=== PATIENT | female | born 1940 | race Caucasian/White ===

== ENCOUNTER → 2018-09-25 | Outpatient (CLI) | payer OTHER ==
[~2018-09-25] VITALS: Ht 152.4 cm; Wt 69.4 kg
[~2018-09-25] MED LIST: B12INJ IM; BENADRYL25 MG PO; BENICAR20 MG PO; CALCIUM 600 +1 EAC1 PO; CLONAZEPAM 1 MG1 M1 PO; CO Q-10100 MG PO; ESTRADIOL 1 MG T1 M1 PO; FISH OIL 1,001000 M2 PO; PROTONIX40 M1 PO; REFRESH CELLUVI1 APP OPHTHALMIC; SIMILASAN OPHTHALMIC; TYLENOL EXTRA500 MG PO; VITAMIN B-12500 MCG PO; VITAMIN D3 PO; VITAMINC500 PO; WELCHOL 625 MG625 M1 PO; WELCHOL 625 MG625 MG PO; ZETIA10 MG PO; ZYRTEC10 M2 PO
[2018-09-25 08:55] VITALS: BP 139/67
--- NOTE | 2018-09-25 09:48 | NUR ---
Pain Clinic Assessment: 1. History of Osteoarthritis: * SHOULDERS AND BACK PER PT History of Rheumatoid Arthritis: 2. Height: 5 ft. 0 in. 152.4 cm. Weight: 153.0 lb. oz. 69.400 kg. Patient's BMI: 29.9 3. Vital Signs: BP: 139/67 Pulse: 88 Resp: 16 Temp: 02 Sat: 96 ECG Mon: 4. Pain Intensity: 1-2 NOW PER PT 5. Fall Risk: Dizziness: Y Needs help standing or walking: N Fallen in the last 3 months: N Fall risk comments: 6. Patient on Blood Thinner: None 7. History of Hypertension: N 8. Opioid Therapy greater than 6 weeks: N Opiate Contract Signed: 9. Risk Assessment Tool Provided: 10. Functional Assessment Tool: 11. Recreational Drug Use: Never Drug Type: Tobacco Use: Unknown if Ever Smoked Tobacco Type: Amount or Packs/day: How Many Years: Alcohol Use: No Frequency: Quant:
--- NOTE | 2018-09-28 16:24 | HPC ---
[facility] [address] [place] [address] PAIN MANAGEMENT CONSULTATION Name: LEONARD GALARZA Room #: REG [facility].#: [id number] Admission: 09/25/18 ������������������ Attend Phys: Yadiel Lam MD Discharge: ������������������ Date of : 42 Report #: [id number] THIS REPORT FOR: //name// CC: Kory WILKINS DATE OF SERVICE: 09/25/2018 CHIEF COMPLAINT: Chronic pain. I am seeing the patient today for discussion of multiple pain generators and chronic pain management. I have recently seen her in the clinic. She complains of numerous pains beginning with a longstanding diagnosis of fibromyalgia and now complaining of constant pain in the thoracic region radiating around the right chest wall in a T6 distribution below the breast, not crossing midline. This pain is worsened when she is leaning back in a chair, putting pressure on the thoracic spine or when the area is pressed. She also has pain with forward flexion and leaning forward to perform day-to-day activities. Descriptors vary from burning, shooting, stabbing and sharp to tenderness. Once the pressure aggravates the pain it takes some time for it to ease. She scores it as a 10/10 when this occurs. A second pain generator is new within the last 2 months. She has complained of pain in her low back radiating into the buttocks equally. It does not go further. It does not go into the legs. This often occurs with prolonged sitting and sleeve machine tender such as lifting. If she can lay down and rests often times the pain will improve. Between the multiple aches and pains of fibromyalgia, the low back pain and the constant pain in the upper back, she has become more and more sedentary. This seems to have increased her pain. During the cold winter months, she has been reluctant to walk or get outside. MEDICATIONS: Cholesterol, Benicar, Zetia, clonazepam, pantoprazole, estradiol, CoQ10, vitamin B12, vitamin C, fish oil, D3, calcium, occasional Zyrtec, Benadryl and she takes Tylenol 500 mg once or twice as needed. ALLERGIES AND SENSITIVITIES: THIS LISTS ABOUT 25 MEDICATIONS AND PLEASE REFER TO THE ELECTRONIC MEDICAL RECORD. ALLERGIES ARE WELL NOTED THROUGHOUT THE RECORD. SHE DOES HAVE SENSITIVITIES TO OPIOIDS AND OTHER PAIN MEDICATIONS INCLUDING ANTI-INFLAMMATORY DRUGS, TOLERATES THEM POORLY. PAST MEDICAL HISTORY: Remarkable for a 1985 "tumor" under the collarbone and a hysterectomy of the same year. She has had multiple eye surgeries. She has had dental implants in [address] [address] PAIN MANAGEMENT CONSULTATION Name: LEONARD GALARZA Room #: REG [facility]#: [id number] Admission: 09/25/18 ������������������ Attend Phys: Yadiel Lam MD Discharge: ������������������ Date of : 42 Report #: [id number] SOCIAL HISTORY: She is . Her is with her today and is supportive. 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 She denies use of tobacco and alcohol. REVIEW OF SYSTEMS: CONSTITUTIONAL: Positive for fatigue, weakness and headaches. EARS, NOSE AND THROAT: Positive for ringing and she complains of chronic sinus problems and allergies to seasonal allergies. CARDIOVASCULAR AND RESPIRATORY: Positive for shortness of breath and dyspnea on exertion. GASTROINTESTINAL: She has no gastrointestinal symptoms. GENITOURINARY: Positive for nocturia and change in force or stream when urinating. MUSCULOSKELETAL: Positive for the diffuse complaints described above. PSYCHIATRIC: She denies any psychiatric issues, depression or anxiety. MUSCULOSKELETAL: Also positive for osteoarthritis. She complains mostly of bilateral knee pain, shoulder pain on the left and hands. PHYSICAL EXAMINATION GENERAL: This is a pleasant female. VITAL SIGNS: Blood pressure 139/67, heart rate 88, respirations 16, O2 sat 96. She scores her pain intensity as 1 to 2 during her visit. She is 5 feet tall, 153 pounds, BMI 29.9. She can move easily from sitting to standing position. She walks without antalgic features. HEAD: Normal. NECK: Supple. No masses palpable. CHEST: Clear to auscultation without wheezing. CARDIAC: Rhythm is regular, without murmur. ABDOMEN: Soft. MUSCULOSKELETAL: Demonstrates multiple tenderness throughout multiple muscle groups consistent with fibromyalgia. Examination of the thoracic spine reveals tenderness along the paravertebral muscles in the midthoracic spine consistent with her complaint of radiating pain around the right side. Palpation of this area even lightly causes hyperalgesia with increased pain that persisted throughout the rest of the exam. Examination of the low back reveals pain across the lumbosacral segment. There is pain with forward flexion, extension, rotational movements. Straight leg raising is negative for radicular symptoms. There is no numbness or weakness noted in the lower extremities. X-RAYS: Radiographs of the thoracic spine reviewed, which shows lumbar thoracic scoliosis and moderate to diffuse thoracic spondylosis. There is some degenerative disk disease throughout the mid thoracic spine. We do not have lumbar x-rays. IMPRESSION: [facility] [address] [place] [address] PAIN MANAGEMENT CONSULTATION Name: LEONARD GALARZA Room #: REG [facility] Alves#: [id number] Admission: 09/25/18 ������������������ Attend Phys: Yadiel Lam MD Discharge: ������������������ Date of : 42 Report #: [id number] 1. Fibromyalgia. 2. Spondylitic thoracic pain with radiating pain, which may be referred or radicular at the T6 on the right. 3. Low back pain, which I also believe is mechanical and spondylitic. RECOMMENDATIONS: 1. I have ordered x-rays of the lumbar spine, which we will review. 2. I will consider lumbar facet injections for her low back pain. This will not do much for her midthoracic spine, but we could also consider an injection there either for diagnostic or therapeutic purposes. I have told her I do not think these injections will provide much in the way of lasting relief and we had a long discussion about the philosophy of managing degenerative pain in the elderly. Most injections provide some symptomatic relief and we use the metric of meaningful improvement for a good duration of response measuring many months for injections to be utilized as a tool and managing chronic conditions such as this. Medications may be of value, but she is poorly tolerant of medications. We talked about some [id number] creams and rubs and even a trial of some CBD. Multiple questions were asked and answered. We will see her back after x-rays for consideration of lumbar facet injections. ��������������������������������������������� <ELECTRONICALLY SIGNED> ���������������������������������������� By: Yadiel Lam MD ��������������������������������������������� 09/28/18 1624 [id number] Yadiel Lam MD /nt
== END | disposition home or self-care (01) ==
LOC: PAIN 06:38
DX: M54.5 Low back pain (principal); M79.7 Fibromyalgia; Z79.899 Other long term (current) drug therapy; Z88.8 Allergy status to other drugs, medicaments and biological substances

== ENCOUNTER → 2018-10-16 | Outpatient (CLI) | payer OTHER ==
[~2018-10-16] VITALS: Ht 152.4 cm; Wt 69.9 kg
--- NOTE | ~2018-10-16 | HPC ---
[facility] [place] [address] [place] [address] PAIN MANAGEMENT CONSULTATION Name: LEONARD GALARZA [id number] Admission: 10/16/18 ������������������ Attend Phys: Yadiel Lam MD Discharge: ������������������ Date of : 42 Report #: [id number] THIS REPORT FOR: //name// CC: JUAN WILKINS DATE OF SERVICE: 10/16/2018 Followup visit for lumbar spondylosis. The patient returns to pain clinic today for facet treatments. She has been recently seen in the clinic on 09/25/2018 at which time we diagnosed lumbar spondylosis as well as thoracic spondylitic pain syndrome. MRIs of the lumbar spine were reviewed that show degenerative anterolisthesis of L4 on L5 and retrolisthesis of L2 on L3. It is likely that these changes are resulting in malalignment of the posterior elements in the facets, which is resulting in spondylitic pain. She is here today for facet injections. I explained the procedure to her in some detail potential risks and benefits. PHYSICAL EXAMINATION: MUSCULOSKELETAL: Once again demonstrates multiple tenderness sites throughout the muscle groups that is consistent with her known diagnosis of fibromyalgia. Examination of the low back reveals pain across the lumbosacral segment with flexion and extension. Pain is worse with extension suggesting spondylosis. There is no leg pain whatsoever today or any consistent finding of radiculopathy. IMPRESSION: 1. Fibromyalgia. 2. 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 3. Low back pain, spondylosis related to degenerative anterolisthesis of L4 on L5 and retrolisthesis of L2 on L3. PROCEDURE: Lumbar facet injections, L2-L3, L3-L4, L4-L5 under fluoroscopic guidance. DESCRIPTION OF PROCEDURE: She was taken to fluoroscopic suite. She was placed prone, skin prepped with ChloraPrep. Skin anesthetized over the above mentioned facet joints, first on the left, 22-gauge needles were advanced carefully into the posterior inferior recess of the facet joint capsule and after positioning and negative aspiration, I gently injected each joint with 0.5 mL of 0.5% bupivacaine mixed with 10 mg of triamcinolone. Ophiem were removed. C-arm was moved to the right. Mirror image injections were performed once again at the L2-L3, L3-L4, L4-L5 facet joints. She tolerated the procedures well. She was [address] [address] PAIN MANAGEMENT CONSULTATION Name: LEONARD GALARZA Room #: REG [facility] Alves#: [id number] Admission: 10/16/18 ������������������ Attend Phys: Yadiel Lam MD Discharge: ������������������ Date of : 42 Report #: [id number] taken to recovery room where she was observed for approximately 45 minutes. On admission to the clinic today, her pain score was 4-5. Pain score at discharge was 1. Followup visit is scheduled for 11/27/2018. ��������������������������������������������� ���������������������������������������� By: ��������������������������������������������� [id number] Yadiel Lam MD /jaqueline
[2018-10-16 10:41] VITALS: BP 147/69
--- NOTE | 2018-10-16 11:05 | NUR ---
Pain Clinic Assessment: 1. History of Osteoarthritis: * SHOULDERS AND BACK PER PT History of Rheumatoid Arthritis: NO 2. Height: 5 ft. 0 in. 152.4 cm. Weight: 154.2 lb. oz. 69.945 kg. Patient's BMI: 30.1 3. Vital Signs: BP: 147/69 Pulse: 82 Resp: 16 Temp: 02 Sat: 96 ECG Mon: 4. Pain Intensity: 4-5 5. Fall Risk: Dizziness: N Needs help standing or walking: N Fallen in the last 3 months: N Fall risk comments: 6. Patient on Blood Thinner: None 7. History of Hypertension: N 8. Opioid Therapy greater than 6 weeks: N Opiate Contract Signed: 9. Risk Assessment Tool Provided: 10. Functional Assessment Tool: 11. Recreational Drug Use: Never Drug Type: Tobacco Use: Unknown if Ever Smoked Tobacco Type: Amount or Packs/day: How Many Years: Alcohol Use: No Frequency: Quant:
== END | disposition home or self-care (01) ==
LOC: PAIN 06:44
DX: M47.816 Spondylosis without myelopathy or radiculopathy, lumbar region (principal); M79.7 Fibromyalgia; M43.16 Spondylolisthesis, lumbar region; Z79.82 Long term (current) use of aspirin; Z79.899 Other long term (current) drug therapy; Z88.8 Allergy status to other drugs, medicaments and biological substances

== ENCOUNTER → 2018-11-27 | Outpatient (CLI) | payer OTHER ==
[~2018-11-27] VITALS: Ht 152.4 cm; Wt 71.4 kg
[~2018-11-27] MED LIST changes: +VALIUM5 MG PO
--- NOTE | ~2018-11-27 | HPC ---
[facility] [address] [place] [address] PAIN MANAGEMENT CONSULTATION Name: LEONARD GALARZA Room #: REG [facility] Joselyn#: [id number] Admission: 11/27/18 ������������������ Attend Phys: Yadiel Lam MD Discharge: ������������������ Date of : 42 Report #: [id number] THIS REPORT FOR: //name// CC: Yadiel WILKINS DATE OF SERVICE: 11/27/2018 Followup visit for lumbar spondylosis and low back pain without radiation. The patient returns to pain clinic today and has had a good response to facet injections, albeit short. She had excellent pain relief for several days, scoring her pain as a 1-2. The pain then gradually came back. I had performed injections for her on 10/16/2018, injecting the facets at L2-L3, L3-L4, L4-L5 bilaterally under fluoroscopic guidance. I think this has helped significantly with diagnosis of this component of pain. She also has multiple pain generators including joint pains and muscle pains, which she describes as fibromyalgia. This is a longstanding diagnosis for her. She also complains of intermittent pain in mid back, and also pain in her knees and hips where she has some osteoarthritis. She has well known degenerative spine disease with lumbar levoscoliosis as well as diffuse degenerative changes of the lumbar spine including anterolisthesis of L4 on L5 and retrolisthesis of L2 on L3. MEDICATIONS: Reviewed and reconciled. She is not on opioid medications. She has completed an opioid risk assessment tool, which she scores a 0. She denies use of tobacco or alcohol. She is not on a blood thinner and she is not hypertensive. She has not fallen in the last 3 months. Her BMI is 30.7. She has a diffuse history of osteoarthritis involving shoulders and back as well as knee is noted. PHYSICAL EXAMINATION: VITAL SIGNS: Blood pressure 139/78, heart rate is 88, and respirations 16. She is 5 feet tall. She moves from sitting to standing position. She ambulates with mild antalgic features. HEENT: Within normal limits. Pupils equal, round, react to light. Mucous membranes are moist. CHEST: Clear. CARDIAC: Rhythm is regular. ABDOMEN: Soft. Examination of the musculoskeletal system reveals diffuse myofascial tender points. She has pain across the lumbosacral segment with both flexion and extension. Straight leg raising is negative for radiculopathy. IMPRESSION: [facility] [address] [place] [address] PAIN MANAGEMENT CONSULTATION Name: LEONARD GALARZA Room #: REG [facility]#: [id number] Admission: 11/27/18 ������������������ Attend Phys: Yadiel Lam MD Discharge: ������������������ Date of : 41 Report #: [id number] 1. Chronic intractable pain with spondylosis as well as other pain generators including fibromyalgia. 2. 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 RECOMMENDATIONS: A 30-minute consultation today [id number] discussing options for treatment. Extensive discussions regarding physical therapy, active motion program, medication management, injections including interventional treatments such as radiofrequency and the lack of significant benefit available by my assessment of a surgical approach. Multiple questions were asked and answered by the patient. We discussed use of pain medication extensively. She is against using nonsteroidal anti-inflammatory drugs, opioids, but is willing to try a muscle relaxant and we suggested either low dose tizanidine or diazepam. She already takes clonazepam at bedtime. The use of a diazepam for muscle relaxant properties during the daytime may be of some benefit. We will cautiously monitor her response to trial. Followup visit is planned for medial branch nerve blocks. I told her the likelihood that she would go through the whole process, but benefit is roughly 50% in my practice. She is hopeful that we can provide some interventional relief. Medial branch nerve blocks will be scheduled. ��������������������������������������������� ���������������������������������������� By: ��������������������������������������������� [id number] [id number] Yadiel Lam MD /nt
[2018-11-27 09:00] VITALS: BP 139/78
--- NOTE | 2018-11-27 09:16 | NUR ---
Pain Clinic Assessment: 1. History of Osteoarthritis: SHOULDERS AND BACK PER PT History of Rheumatoid Arthritis: NO 2. Height: 5 ft. 0 in. 152.4 cm. Weight: 157.4 lb. oz. 71.396 kg. Patient's BMI: 30.7 3. Vital Signs: BP: 139/78 Pulse: 88 Resp: 16 Temp: 02 Sat: 97 ECG Mon: 4. Pain Intensity: 1 5. Fall Risk: Dizziness: Y Needs help standing or walking: N Fallen in the last 3 months: N Fall risk comments: 6. Patient on Blood Thinner: None 7. History of Hypertension: N 8. Opioid Therapy greater than 6 weeks: N Opiate Contract Signed: 9. Risk Assessment Tool Provided: low-0 10. Functional Assessment Tool: 11. Recreational Drug Use: Never Drug Type: Tobacco Use: Former Smoker Tobacco Type: Amount or Packs/day: How Many Years: Alcohol Use: No Frequency: Quant:
== END ==
LOC: PAIN 08:43
DX: M47.816 Spondylosis without myelopathy or radiculopathy, lumbar region (principal); G89.4 Chronic pain syndrome; M79.7 Fibromyalgia; M54.6 Pain in thoracic spine; Z79.899 Other long term (current) drug therapy

== ENCOUNTER → 2018-12-25 | Outpatient (CLI) | payer OTHER ==
[~2018-12-25] VITALS: Ht 152.4 cm; Wt 0.8 kg
[2018-12-25 09:46] VITALS: BP 145/71
--- NOTE | 2018-12-25 09:48 | NUR ---
Pain Clinic Assessment: 1. History of Osteoarthritis: SHOULDERS AND BACK PER PT History of Rheumatoid Arthritis: NO 2. Height: 5 ft. 0 in. 152.4 cm. Weight: 1.8 lb. oz. 0.816 kg. Patient's BMI: 0.4 3. Vital Signs: BP: 145/71 Pulse: 94 Resp: 16 Temp: 02 Sat: 97 ECG Mon: 4. Pain Intensity: 5 5. Fall Risk: Dizziness: N Needs help standing or walking: N Fallen in the last 3 months: N Fall risk comments: 6. Patient on Blood Thinner: None 7. History of Hypertension: N 8. Opioid Therapy greater than 6 weeks: N Opiate Contract Signed: 9. Risk Assessment Tool Provided: low-0 10. Functional Assessment Tool: 11. Recreational Drug Use: Never Drug Type: Tobacco Use: Former Smoker Tobacco Type: Amount or Packs/day: How Many Years: Alcohol Use: No Frequency: Quant:
--- NOTE | 2018-12-28 16:33 | HPC ---
[facility] [address] [place] [address] PAIN MANAGEMENT CONSULTATION Name: LEONARD GALARZA Room #: REG [facility] [id number] Admission: 12/25/18 Attend Phys: Yadiel Lam MD Discharge: Date of : 42 Report #: [id number] THIS REPORT FOR: //name// CC: Yadiel WILKINS DATE OF SERVICE: 12/25/2018 Followup visit for medial branch nerve blocks. I spent about 45 minutes today with the patient and her son discussing radiofrequency ablation. It is a complicated procedure from start to finish with the diagnostic injections followed by the radiofrequency ablation. Multiple questions and discussions have followed. I have given her 50% chance that we can provide her with some meaningful lasting relief with the procedure. PQRS: 1. Osteoarthritis of shoulders and back. 2. BMI is 30.4. 3. Blood pressure 145/71, heart rate 94. 4. Pain intensity 5/10. 5. She is not a fall risk. 6. No blood thinners. 7. No history of hypertension or treatment. 8. No opioids. 9. Risk tool completed, 0 score. 10. Functional assessment score of 31/70. 11. She denies use of tobacco and alcohol. PHYSICAL EXAMINATION: VITAL SIGNS: As noted above. CHEST: Clear. CARDIAC: Rhythm is regular. MUSCULOSKELETAL: Reveals pain across the lumbosacral segment with flexion and extension. No evidence of radiculopathy. IMPRESSION: 1. Lumbar spondylosis. 2. Fibromyalgia. 3. 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 PROCEDURE: Diagnostic medial branch nerve blocks, bilateral, L1, L2, L3, L4. She was taken to fluoroscopic suite for procedure. She was placed prone, skin prepped with ChloraPrep. Skin was anesthetized over the L2, L3, L4, L5 transverse process and 25-gauge needle advanced in position using oblique and [facility] [address] [place] [address] PAIN MANAGEMENT CONSULTATION Name: LEONARD GALARZA Room #: REG CL Joselyn#: [id number] Admission: 12/25/18 Attend Phys: Yadiel Lam MD Discharge: Date of : 42 Report #: [id number] view. After negative aspiration, I injected each needle with 0.5 mL of 0.5% bupivacaine. [place] were removed. Same procedure was repeated on the right. There were no complications. She was taken to recovery room. Initial pain score had dropped from 5 to 2. She was given a paper to keep track of her pain as she tries reproducing her normal pain while the local anesthetic is in effect. Assuming a positive response, we will bring her back for radiofrequency and perform ablations of the L1, L2, L3 and L4 medial branch nerves bilaterally. No new medications were ordered. <ELECTRONICALLY SIGNED> By: Yadiel Lam MD 12/28/18 1633 [id number] Yadiel Lam MD /nt
== END | disposition home or self-care (01) ==
LOC: PAIN 06:47
DX: M47.816 Spondylosis without myelopathy or radiculopathy, lumbar region (principal); M79.7 Fibromyalgia; M19.019 Primary osteoarthritis, unspecified shoulder; Z87.891 Personal history of nicotine dependence; Z88.8 Allergy status to other drugs, medicaments and biological substances; Z79.899 Other long term (current) drug therapy

== ENCOUNTER → 2019-01-22 | Outpatient (CLI) | payer OTHER ==
[~2019-01-22] VITALS: Ht 152.4 cm; Wt 70.4 kg
[~2019-01-22] MED LIST changes: +BUTRANS1 EACH INTRADERM
--- NOTE | ~2019-01-22 | HPC ---
[facility] [address] [place] [address] PAIN MANAGEMENT CONSULTATION Name: LEONARD GALARZA Room #: REG Mariana Joselyn#: [id number] Admission: 01/22/19 ������������������ Attend Phys: Yadiel Lam MD Discharge: ������������������ Date of : 42 Report #: [id number] THIS REPORT FOR: //name// CC: Yadiel WILKINS DATE OF SERVICE: 01/22/2019 Followup visit for chronic pain radiating into the buttocks and midthoracic spine roughly T5 without radiation. The patient returns to pain clinic today with her . She continues to complain of pain at a level of 0-1 as long as she is in motion. Prolonged sitting worsens her pain. She has had attempted medial branch denervation for relief and did not respond to the diagnostic injections. We will not go forward with radiofrequency ablation due to the failure of ability to provide relief. She is here today once again requesting other options. She is very resistant to medications and has a number of sensitivities and allergies. PQRS REVIEW: 1. Osteoarthritis is positive for shoulders and back per the patient. 2. BMI of 30.3. 3. Vital signs: Blood pressure 127/61, heart rate 92, respirations 16, O2 sat 97. 4. Pain intensity at rest 10. 5. She is not a fall risk and has not fallen in the last 3 months. 6. No blood thinning medications. 7. No history of hypertension or treatment. 8. She is not on opioid medications at this time. 9. She has completed an ORT with score of 0. 10. Functional assessment score is 31/70 which is modest. 11. She denies use of tobacco and alcohol. PHYSICAL EXAMINATION: A pleasant female. Vital signs as noted. She moves independently from sitting to standing position, ambulates with only mild discomfort. She has tenderness across the lumbosacral segment, some radiating pain into the buttocks. Straight leg raising is only mildly positive for some discomfort radiating into hips, but does not radiate further into legs. There is no focal weakness or numbness in either of the lower extremities. X-rays are positive for an anterolisthesis of L4 on L5 and retrolisthesis of L2 on L3. [facility] [address] [place] [address] PAIN MANAGEMENT CONSULTATION Name: LEONARD GALARZA Room #: [facility]#: [id number] Admission: 01/22/19 ������������������ Attend Phys: Yadiel Lam MD Discharge: ������������������ Date of : 42 Report #: [id number] IMPRESSION: Chronic low back pain, lumbar and thoracic. The lumbar pain may be related to anterolisthesis and retrolisthesis and may have some radicular components with radiation into the hips, although it does not radiate further into the legs. RECOMMENDATION: I made 2 recommendations: 1. Trial of Butrans patches 5 mg 1 patch q. 7 days. There was a lot of discussion about this. She was concerned about coming off in a pool. I do believe patch stays on, but she would have to try to make sure. 2. Consider epidural injection. I provided with an article describing the potential benefits of buprenorphine as a first line pain relieving medication. We have had some success, particularly in elderly patients, one of the presumed advantages of buprenorphine over other opioids. There seems to be a lower incidence of constipating side effects and there is a limit on respiratory depression. She is reluctant to try medication and I understand a prescription on the left was provided after extensive education. Follow up if preauthorization could be achieved for an epidural injection in the lumbosacral region. ��������������������������������������������� ���������������������������������������� By: ��������������������������������������������� [id number] Yadiel Lam MD /nt
[2019-01-22 13:05] VITALS: BP 127/61
--- NOTE | 2019-01-22 13:18 | NUR ---
Pain Clinic Assessment: 1. History of Osteoarthritis: SHOULDERS AND BACK PER PT History of Rheumatoid Arthritis: NO 2. Height: 5 ft. 0 in. 152.4 cm. Weight: 155.2 lb. oz. 70.398 kg. Patient's BMI: 30.3 3. Vital Signs: BP: 127/61 Pulse: 92 Resp: 16 Temp: 02 Sat: 97 ECG Mon: 4. Pain Intensity: 0-1-NOW 5. Fall Risk: Dizziness: N Needs help standing or walking: N Fallen in the last 3 months: N Fall risk comments: 6. Patient on Blood Thinner: None 7. History of Hypertension: N 8. Opioid Therapy greater than 6 weeks: N Opiate Contract Signed: 9. Risk Assessment Tool Provided: low-0 10. Functional Assessment Tool: 11. Recreational Drug Use: Never Drug Type: Tobacco Use: Former Smoker Tobacco Type: Amount or Packs/day: How Many Years: Alcohol Use: No Frequency: Quant:
== END ==
LOC: PAIN 06:49
DX: M54.6 Pain in thoracic spine (principal); M54.5 Low back pain

== ENCOUNTER → 2020-09-08 | Outpatient (CLI) | payer OTHER | LOC: LAB 11:50 | PROVIDERS: ATTEND Anesthesiology | DX: Z01.812 Encounter for preprocedural laboratory examination (principal); Z20.822 Contact with and (suspected) exposure to COVID-19 ==